=== PATIENT | female | born 1985 | race Caucasian/White ===

== ENCOUNTER → 2020-08-24 | Outpatient (CLI) | payer BC ==
[~2020-08-24] MED LIST: BACTRIM DS 8001 TAB PO; CEPHALEXIN500 M1 PO; NO HOME MEDICATIONS
== END ==
LOC: ZCOL.LAB 09:56
DX: Z20.822 Contact with and (suspected) exposure to COVID-19 (principal)

== ENCOUNTER → 2020-11-30 | Outpatient (CLI) | payer BC | LOC: COL.LAB 09:30 | DX: Z20.822 Contact with and (suspected) exposure to COVID-19 (principal) ==

== ENCOUNTER → 2021-02-01 | Outpatient (CLI) | payer BC | LOC: ZCOL.LAB 08:50 | DX: Z20.822 Contact with and (suspected) exposure to COVID-19 (principal) ==

== ENCOUNTER → 2021-02-22 | Outpatient (CLI) | payer BC | LOC: ZCOL.LAB 10:18 | DX: Z20.822 Contact with and (suspected) exposure to COVID-19 (principal) ==

== ENCOUNTER 2022-05-15 18:29 | Emergency (ER) | payer OTHER ==
[~2022-05-15] VITALS: Ht 167.6 cm; Wt 109.1 kg
[2022-05-15 18:41] VITALS: TEMP 97.8
[2022-05-15] MEDS ORDERED: AMOXICILLIN 8751 TAB PO (19:15)
[2022-05-15 19:46] VITALS: BP 122/71; PULSE 78
== END 2022-05-15 19:48 | disposition home or self-care (01) ==
LOC: COL.ER 18:29
DX: S61.251A Open bite of left index finger without damage to nail, initial encounter (principal); S31.159A Open bite of abdominal wall, unspecified quadrant without penetration into peritoneal cavity, initial encounter; Z28.310 Unvaccinated for COVID-19; Z23 Encounter for immunization; W54.0XXA Bitten by dog, initial encounter